=== PATIENT | female | born 1970 | race Caucasian/White ===

== ENCOUNTER 2017-11-17 07:55 | Day surgery (SDC) | payer OTHER ==
[2017-11-15 17:04] LABS: BASOPHILS 0.3 % (0-2); EOSINOPHILS 1.5 % (0-7); HEMATOCRIT 40.9 % (36.0-48.0); IMMATURE GRANULOCYTES 0.1 % (0-5); LYMPHOCYTES 23.3 % (15-50); MCH 30.2 pg (26.0-34.0); MCHC 34.2 g/dL (31.0-37.0); MCV 88.3 fL (80.0-100.0); MEAN PLATELET VOLUME 10.8 fL (7.4-10.4); MONOCYTES 6.6 % (2-11); NEUTROPHILS 68.2 % (40-80); PLATELET COUNT 195 10x3/uL (130-400); RBC 4.63 10x6/uL (4.00-5.40); RDW 13.7 % (11.5-14.5); WBC 7.4 10x3/uL (4.8-10.8)
[2017-11-15 17:39] LABS: ANION GAP 11.7 mmol/L (8-16); CALCIUM 9.2 mg/dL (8.5-10.1); CARBON DIOXIDE 29.9 mmol/L (21.0-32.0); CREATININE - SERUM 1.1 mg/dL (0.6-1.3); POTASSIUM - SERUM 3.6 mmol/L (3.5-5.1)
[~2017-11-17] VITALS: Ht 152.4 cm; Wt 123.8 kg
--- NOTE | ~2017-11-17 | OP ---
PATIENT NAME: CORNELIUS WEBB MEDICAL RECORD: [id number] :68 LOCATION:[facility] ADMISSION DATE: SURGEON: LAVON GRIGSBY MD DATE OF OPERATION: 11/17/2017 PREOPERATIVE DIAGNOSES: Pelvic pain and postmenopausal bleeding. POSTOPERATIVE DIAGNOSES: Extensive pelvic adhesions and two small endometrial polyps. PROCEDURES: Diagnostic laparoscopy and hysteroscopy, D&C. SURGEON: Lavon Grigsby MD ESTIMATED BLOOD LOSS: Minimal. INTRAVENOUS FLUIDS: Per anesthesia record. HYSTEROSCOPIC FLUID LOSS: Approximately, 30 mL of 0.9 normal saline. SPECIMENS: Endometrial curettings. COMPLICATIONS: None apparent. FINDINGS: 1. Extensive adhesive disease involving the omentum, small bowel and the previous Pfannenstiel incision. Bilateral adnexa and uterus. 2. Hysteroscopic findings included a very small endometrial polyps, more prominent on the posterior aspect of the uterus. COMPLICATIONS: None apparent. DESCRIPTION OF PROCEDURE: The patient was taken to the operating room where general anesthesia was achieved without difficulty. The patient was then prepped and draped in normal sterile fashion in the dorsal lithotomy position in the [facility]. The patient was prepped and draped. A Zaldivar catheter was placed and a sponge stick placed in the vagina for uterine elevation. At this point, attention was turned to the umbilicus where a 5-mm incision was made in the infraumbilical area and the intraperitoneal space was entered under direct visualization using the 5-mm bladeless trocar. Upon visual entry into the peritoneum, the introducer was removed and the patient was then insufflated with opening pressure less than 10 mmHg. The scope was then reintroduced, intraperitoneal placement was confirmed. At this point, survey of the abdomen and pelvis was performed due to the extensive adhesive disease and difficulty visualizing the adnexa. A decision was made at that time as the patient was planning for hysterectomy, did not perform an extensive lysis of adhesions laparoscopically. The scope was then removed. The patient was desufflated and the port was removed from the umbilicus. A 3-0 Monocryl was used to close the skin incision. Attention was then turned to the vagina. The Zaldivar catheter was then removed. A Graves speculum was placed into the vagina. The cervix was identified and grasped on its anterior lip with a single tooth tenaculum. The cervix was dilated to approximately 6-mm and the hysteroscope was introduced. Survey of the endometrial cavity was performed followed by curettage using a #1 curette. Minimal bleeding was noted at that time. Tenaculum was removed with good hemostasis noted from the tenaculum site. The patient tolerated the OPERATIVE REPORT [id number] CORNELIUS WEBB procedure well, was transported to postanesthesia recovery stable without incident. TRANSINT:[id number] Voice Confirmation ID: [id number] DOCUMENT ID: [id number] LAVON GRIGSBY MD at 1808 CC: [id number] DICTATION DATE: 11/23/17 0953 [employer] WORKER: 11/23/17 1126 [facility] 11/17/17 [id number] [place] [address]
[~2017-11-17 07:55] MED LIST: ASPIRIN EC325 M1 PO; ATIVAN0.5 MG PO; DHEA25 M1 PO; FUROSEMIDE20 MG PO; HCTZ25 MG PO; KLOR-CON 88 MEQ PO; NP THYROID90 MG PO; NUFOLA PO; VITAMIN D250000 UNIT PO; ZOLOFT50 MG PO
[2017-11-17 08:22] VITALS: BP 102/60; Ht 152.4 cm; Wt 123.8 kg
== END 2017-11-17 14:47 | disposition home or self-care (01) ==
LOC: D.OPS 07:55 → D.PAN 08:30 → D.OPS 10:00 → D.PAN 10:30 → D.OPS 10:30
PROVIDERS: Anesthesiology; Obstetrics & Gynecology
DX: N73.6 Female pelvic peritoneal adhesions (postinfective) (principal); N84.0 Polyp of corpus uteri; Z01.812 Encounter for preprocedural laboratory examination

== ENCOUNTER 2017-12-15 05:30 | Inpatient (IN) | payer OTHER ==
[2017-12-12 10:50] LABS: BASOPHILS 0.2 % (0-2); HEMATOCRIT 38.8 % (36.0-48.0); HEMOGLOBIN 13.3 g/dL (12-16); IMMATURE GRANULOCYTES 0.2 % (0-5); LYMPHOCYTES 18.3 % (15-50); MCH 30.4 pg (26.0-34.0); MCHC 34.3 g/dL (31.0-37.0); MCV 88.6 fL (80.0-100.0); MEAN PLATELET VOLUME 10.9 fL (7.4-10.4); MONOCYTES 5.8 % (2-11); NEUTROPHILS 74.5 % (40-80); PLATELET COUNT 194 10x3/uL (130-400); RBC 4.38 10x6/uL (4.00-5.40); RDW 14.1 % (11.5-14.5); WBC 6.2 10x3/uL (4.8-10.8)
[2017-12-12 11:02] LABS: ANION GAP 11.2 mmol/L (8-16); CALCIUM 9.2 mg/dL (8.5-10.1); CARBON DIOXIDE 31.3 mmol/L (21.0-32.0); POTASSIUM - SERUM 3.5 mmol/L (3.5-5.1)
[~2017-12-15] VITALS: Ht 152.4 cm; Wt 126.8 kg
--- NOTE | ~2017-12-15 | MORECARE ---
CASE MANAGEMENT DISCHARGE SUMMARY PATIENT: CORNELIUS WEBB UNIT: [id number] ADM DATE: 12/15/17 AGE: 47 : 68 SEX: F ROOM/BED: D.1213 AUTHOR: EDDIE PARR PHYSICIAN: REFERRING PHYSICIAN: LAVON BELCHER MD DATE OF SERVICE: 12/18/17 Discharge Plan Patient Name: CORNELIUS WEBB Facility: [facility]:[place] : 1970 Planned Disposition: Home Anticipated Discharge Date: Discharge Date: 12/18/2017 Expected LOS: Initial Reviewer: [email or web address] Initial Review Date: 12/18/2017 Generated: 12/18/17 3:19 pm Comments DCP- Discharge Planning Updated by FLORENCIA: Justine Perez on 12/18/17 12:[address] CM met with patient and at bedside. Patient plans on returning home with spouse. Denies any discharge needs. CM will continue to follow and assist with discharge planning / needs DCPIA - Discharge Planning Initial Assessment Updated by FLORENCIA: Justine Perez on 12/18/17 1:45 pm * Is the patient Alert and Oriented? Yes * How many steps to enter\exit or inside your home? * Preadmission Environment Home with Family * ADLs Independent * Equipment None * Verbal permission to speak to the caregivers and representatives has been obtained from the patient. Yes * Community resources currently utilized None * Additional services required to return to the preadmission environment? No * Can the patient safely return to the preadmission environment? Yes * Has this patient been hospitalized within the prior 30 days at any hospital? No Last DP export: 12/18/17 12:48 Patient Name: CORNELIUS WEBB Page [phone] at 1419 All edits/amendments must be made on the electronic document DICTATION DATE: 12/18/171418 TEST LEAD APPLICATION TESTING: SHILA 12/18/171418 RPT#: [id number] DC DATE:12/18/17 STATUS: DIS IN [facility] [address] [place] [address] END OF REPORT
--- NOTE | ~2017-12-15 | MORECARE ---
CASE MANAGEMENT DISCHARGE SUMMARY PATIENT: CORNELIUS WEBB UNIT: [id number] ADM DATE: 12/15/17 AGE: 47 : 68 SEX: F ROOM/BED: D.1213 AUTHOR: EDDIE PARR PHYSICIAN: REFERRING PHYSICIAN: LAVON BELCHER MD DATE OF SERVICE: 12/18/17 Discharge Plan Patient Name: CORNELIUS WEBB Facility: [facility]:[place] : 1970 Planned Disposition: Home Anticipated Discharge Date: Discharge Date: 12/18/2017 Expected LOS: Initial Reviewer: [email or web address] Initial Review Date: 12/18/2017 Generated: 12/18/17 2:48 pm Comments DCP- Discharge Planning Updated by FLORENCIA: Justine Perez on 12/18/17 12:[address] CM met with patient and at bedside. Patient plans on returning home with spouse. Denies any discharge needs. CM will continue to follow and assist with discharge planning / needs DCPIA - Discharge Planning Initial Assessment Updated by FLORENCIA: Justine Perez on 12/18/17 1:45 pm * Is the patient Alert and Oriented? Yes * How many steps to enter\exit or inside your home? * Preadmission Environment Home with Family * ADLs Independent * Equipment None * Verbal permission to speak to the caregivers and representatives has been obtained from the patient. Yes * Community resources currently utilized None * Additional services required to return to the preadmission environment? No * Can the patient safely return to the preadmission environment? Yes * Has this patient been hospitalized within the prior 30 days at any hospital? No Patient Name: CORNELIUS WEBB Page [phone] at 1348 All edits/amendments must be made on the electronic document DICTATION DATE: 12/18/[address] ADMINISTRATOR: SHILA 12/18/17 1348 RPT#: [id number] DC DATE:12/18/17 STATUS: DIS IN [facility] [address] [place] [address] END OF REPORT
[2017-12-15 06:20] VITALS: BP 142/91; BMI 54.7
[2017-12-15 06:46] LABS: HCG URINE NEGATIVE (NEGATIVE)
[2017-12-15 19:35] LABS: BASOPHILS 0.1 % (0-2); EOSINOPHILS 0 % (0-7); HEMATOCRIT 35.7 % (36.0-48.0); HEMOGLOBIN 12.4 g/dL (12-16); IMMATURE GRANULOCYTES 0.3 % (0-5); LYMPHOCYTES 5.4 % (15-50); MCH 30.5 pg (26.0-34.0); MCHC 34.7 g/dL (31.0-37.0); MCV 87.9 fL (80.0-100.0); MONOCYTES 3.4 % (2-11); NEUTROPHILS 90.8 % (40-80); PLATELET COUNT 189 10x3/uL (130-400); RBC 4.06 10x6/uL (4.00-5.40); RDW 14.2 % (11.5-14.5); WBC 11.4 10x3/uL (4.8-10.8)
[2017-12-15 19:43] LABS: CALCIUM 8.8 mg/dL (8.5-10.1); CARBON DIOXIDE 25.8 mmol/L (21.0-32.0); CREATININE - SERUM 1.1 mg/dL (0.6-1.3); POTASSIUM - SERUM 3.8 mmol/L (3.5-5.1)
[2017-12-15 20:01] VITALS: BP 129/76
[2017-12-15 23:47] VITALS: BP 129/76; Ht 152.4 cm; Wt 126.8 kg
[2017-12-16 00:26] VITALS: BP 106/66
[2017-12-16 04:37] VITALS: BP 101/60
[2017-12-16 06:20] LABS: BASOPHILS 0.1 % (0-2); EOSINOPHILS 0 % (0-7); HEMATOCRIT 31.1 % (36.0-48.0); HEMOGLOBIN 10.4 g/dL (12-16); IMMATURE GRANULOCYTES 0.3 % (0-5); LYMPHOCYTES 12.6 % (15-50); MCH 29.7 pg (26.0-34.0); MCHC 33.4 g/dL (31.0-37.0); MCV 88.9 fL (80.0-100.0); MEAN PLATELET VOLUME 10.9 fL (7.4-10.4); MONOCYTES 6.8 % (2-11); NEUTROPHILS 80.2 % (40-80); PLATELET COUNT 159 10x3/uL (130-400); RDW 14.4 % (11.5-14.5)
[2017-12-16 06:38] LABS: CALCIUM 8.4 mg/dL (8.5-10.1); CHLORIDE - SERUM 104 mmol/L (98-107); GLUCOSE 102 mg/dL (74-106); SODIUM 140 mmol/L (136-145)
[2017-12-16 06:44] LABS: CALC OSMOLALITY 276 mosm/kg (275-300); CREATININE - SERUM 0.8 mg/dL (0.6-1.3); POTASSIUM - SERUM 3.2 mmol/L (3.5-5.1); UREA NITROGEN 8 mg/dL (7-18); eGFR NON AFRICAN AMERICAN 81 mL/min (90-120)
[2017-12-16 07:19] VITALS: BP 109/67
[2017-12-16 11:19] VITALS: BP 100/61
[2017-12-16 15:30] VITALS: BP 112/64
[2017-12-16 19:25] VITALS: BP 117/70
[2017-12-17 00:07] VITALS: BP 118/72
[2017-12-17 04:24] VITALS: BP 135/76
[2017-12-17 07:13] VITALS: BP 114/64
[2017-12-17 11:44] VITALS: BP 120/69
[2017-12-17 16:36] VITALS: BP 130/76
[2017-12-17 20:00] VITALS: BP 135/71
[2017-12-18] VITALS: BP 119/78
[2017-12-18 04:00] VITALS: BP 138/65
[2017-12-18 06:38] LABS: BASOPHILS 0.2 % (0-2); EOSINOPHILS 2.5 % (0-7); HEMATOCRIT 31.5 % (36.0-48.0); HEMOGLOBIN 10.4 g/dL (12-16); IMMATURE GRANULOCYTES 0.2 % (0-5); LYMPHOCYTES 25.6 % (15-50); MCH 29.9 pg (26.0-34.0); MCV 90.5 fL (80.0-100.0); MEAN PLATELET VOLUME 10.9 fL (7.4-10.4); MONOCYTES 8.2 % (2-11); NEUTROPHILS 63.3 % (40-80); PLATELET COUNT 133 10x3/uL (130-400); RBC 3.48 10x6/uL (4.00-5.40); RDW 14.7 % (11.5-14.5)
[2017-12-18 06:44] LABS: WBC 4.4 10x3/uL (4.8-10.8)
[2017-12-18 07:33] VITALS: BP 151/69
[2017-12-18 11:22] VITALS: BP 127/69
[2017-12-18] MEDS ORDERED: OXYCODONE-APAP1 TAB PO ×2 (12:12→12:15)
[2017-12-18] MEDS ORDERED: IBUPROFEN600 MG PO (12:13)
== END 2017-12-18 13:47 | disposition home or self-care (01) | DRG 743 ==
LOC: D.M3 05:30 → D.SDCHOLD 05:30 → D.M3 19:07
PROVIDERS: Obstetrics & Gynecology
PROC: 0UB20ZZ Excision of Bilateral Ovaries, Open Approach (ICD-10-PCS; 2017-12-15)
PROC: 0UB70ZZ Excision of Bilateral Fallopian Tubes, Open Approach (ICD-10-PCS; 2017-12-15)
PROC: 0UT90ZL Resection of Uterus, Supracervical, Open Approach (ICD-10-PCS; principal; 2017-12-15 07:30)
PROC: 0DNW0ZZ Release Peritoneum, Open Approach (ICD-10-PCS; 2017-12-15 07:30)
DX: N92.0 Excessive and frequent menstruation with regular cycle (principal); N73.6 Female pelvic peritoneal adhesions (postinfective); I27.20 Pulmonary hypertension, unspecified; E03.9 Hypothyroidism, unspecified; J45.909 Unspecified asthma, uncomplicated; I10 Essential (primary) hypertension

== ENCOUNTER → 2018-01-01 15:38 | Outpatient (CLI) | payer OTHER ==
[2017-12-15 23:47] VITALS: BMI 54.6
[~2018-01-01 15:38] MED LIST changes: +IBUPROFEN600 MG PO; +OXYCODONE-APAP1 TAB PO
== END | disposition home or self-care (01) ==
LOC: D.US 15:38
DX: M79.661 Pain in right lower leg (principal)

== ENCOUNTER → 2018-01-27 11:09 | Outpatient (CLI) | payer OTHER ==
[2017-12-15 23:47] VITALS: BMI 54.6
== END | disposition home or self-care (01) ==
LOC: D.US 11:09
DX: M79.661 Pain in right lower leg (principal)

== ENCOUNTER 2018-11-02 12:16 | Outpatient (CLI) | payer OTHER ==
[2017-12-15 23:47] VITALS: BMI 54.6
== END 2018-11-02 23:59 | disposition home or self-care (01) ==
LOC: D.MAMMO 12:16
PROVIDERS: ATTEND Family Medicine
DX: Z12.31 Encounter for screening mammogram for malignant neoplasm of breast (principal)

== ENCOUNTER 2018-12-12 09:00 | Outpatient (CLI) | payer OTHER ==
[2017-12-15 23:47] VITALS: BMI 54.6
== END 2018-12-12 10:00 | disposition home or self-care (01) ==
LOC: D.MAMMO 09:00
PROVIDERS: ATTEND Family Medicine
DX: R92.8 Other abnormal and inconclusive findings on diagnostic imaging of breast (principal)